=== PATIENT | male | born 1960 | race Caucasian/White ===

== ENCOUNTER 2018-08-31 12:37 | Emergency (ER) | payer OTHER ==
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
[2018-08-31 13:59] VITALS: BP 144/89
== END 2018-08-31 13:58 | disposition home or self-care (01) ==
LOC: ED 12:37
DX: M54.2 Cervicalgia (principal); M79.631 Pain in right forearm; V53.5XXA Driver of pick-up truck or van injured in collision with car, pick-up truck or van in traffic accident, initial encounter; Y92.410 Unspecified street and highway as the place of occurrence of the external cause
CPT/HCPCS: 99282; 99283